=== PATIENT | female | born 1985 | race African-American/Black ===

== ENCOUNTER 2020-10-17 16:10 | Emergency (ER) | payer OTHER ==
[~2020-10-17] VITALS: Ht 149.9 cm; Wt 90.7 kg
[2020-10-17] MEDS ORDERED: HYDROCODONE/APAP 5MG-325MG TAB PO ONE (17:15)
[2020-10-17] MEDS ORDERED: IBUPROFEN600 MG PO (17:51)
[2020-10-17] MEDS ORDERED: HYDROCODON-ACE1 EA12 PO ×2 (17:55→18:17)
[2020-10-17 18:31] VITALS: BP 115/88
== END 2020-10-17 18:33 | disposition home or self-care (01) ==
LOC: EDSEX 16:10 → FSED 17:54
DX: M25.561 Pain in right knee (principal); S82.191A Other fracture of upper end of right tibia, initial encounter for closed fracture; W01.0XXA Fall on same level from slipping, tripping and stumbling without subsequent striking against object, initial encounter; Y93.41 Activity, dancing; Y92.29 Other specified public building as the place of occurrence of the external cause; F17.210 Nicotine dependence, cigarettes, uncomplicated
CPT/HCPCS: 99284